=== PATIENT | female | born 1985 | race Hispanic/Latino ===

== ENCOUNTER → 2019-11-14 | Outpatient (CLI) | payer OTHER ==
[~2019-11-14] MED LIST: IOPAMIDOL 300 MG/ML 15ML VIAL IT ONE; LIDOCAINE HCL 1% LOCAL INJ 20 ML VIAL ONE; SODIUM CHLORIDE 0.9% 250ML 250 ML ONE
--- NOTE | 2019-11-14 14:44 | Diagnostic Imaging Report ---
Procedure: Right percutaneous nephrostomy catheter exchange. History: Routine maintenance. Rubber Press Tender: Jeronimo Staton M.D. Director Audience Marketing: [email or web address] Modality: Fluoroscopy. DOSE REDUCTION: The examination was performed according to departmental dose-optimization program. Fluoro time: 0.7 minutes. Radiation dose: 4.47 mGy air Kerma. Sedation: No sedation was used. Vital signs were monitored throughout the procedure by a dedicated RN under direct supervision of Dr. Staton, and remained stable. Physician intra-service sedation time was Not applicable. minutes. Anesthesia: Lidocaine local infiltration Medicines: Not applicable Contrast medium: Isovue 300, 5 cc. Estimated blood loss: < 5 cc. Technique: A discussion of the risks, benefits, and alternatives was carried out with the patient. A written informed consent was obtained. The patient expressed understanding and agreed to proceed. A universal timeout was performed prior to starting the procedure. The procedure room personnel used personal protective equipment. The operators used sterile gowns and gloves. The patient was laid prone on the procedure table. The right percutaneous nephrostomy site was prepped with chlorhexidine gluconate and draped in sterile fashion. A business intelligence manager radiograph was performed showing the catheter to be in the expected location. Contrast injection through the catheter confirmed the catheter tip location in the collecting system. After local anesthetic infiltration, the retention suture was removed. The catheter was cut and withdrawn over a wire. It was replaced with an identical catheter. The catheter position was confirmed with contrast injection. The catheter was secured to skin with nonabsorbable suture. The catheter was connected to a gravity drainage bag. An aseptic dressing was applied. The patient was transferred to the recovery area and discharged from the department in stable condition. Complications: None immediate. Findings: As above. Impression: Successful fluoroscopic guided 8.5 Congolese right nephrostomy catheter exchange as described above. Further management dictated by the clinical scenario. The nephrostomy catheter should be exchanged at the latest in three months. Thank you for the opportunity to assist in the care of your patient. Signed by: Jeronimo Staton MD on 11/14/2019 2:40 PM
== END ==
LOC: DX 11:09
PROVIDERS: ATTEND Urology
DX: N13.30 Unspecified hydronephrosis (principal)
CPT/HCPCS: 50387; 81025; C1769; J2001; J7050; Q9967

== ENCOUNTER → 2019-12-06 | Day surgery (SDC) | payer OTHER ==
[~2019-12-06] MED LIST changes: +AUGMENTIN 875-1 EACH PO; +CEFTRIAXONE SOD 1 GM/NS 50 ML 50 ML IV ONE; +DEXAMETHASONE SOD PHOS INJ 4 MG/ML VIAL ONE; +ETOMIDATE 2 MG/ML 10 ML INJ IV ONE; -IOPAMIDOL 300 MG/ML 15ML VIAL IT ONE; +IOPAMIDOL 300MG/ML 50ML INFUS..BTL IV ONE; -LIDOCAINE HCL 1% LOCAL INJ 20 ML VIAL ONE; +LIDOCAINE HCL 2% LOCAL INJ 5 ML SDV VIAL INJ ONE; +MEPERIDINE HCL INJ 25 MG/ML VIAL ONE; +ONDANSETRON HCL INJ 2MG/ML 2ML 2 MG/ML VIAL ONE; +SEVOFLURANE INHAL SOLN 250 ML PEN BTL ONE; -SODIUM CHLORIDE 0.9% 250ML 250 ML ONE
[2019-12-06 09:35] VITALS: BP 125/94
--- NOTE | 2019-12-06 13:38 | Operative Report ---
DATE OF PROCEDURE: 12/06/2019 SURGEON: Justino Blanchard MD PREOPERATIVE DIAGNOSES: 1. Right-sided nephrostomy. 2. Right hydronephrosis. 3. Microscopic hematuria. POSTOPERATIVE DIAGNOSES: 1. Right-sided nephrostomy. 2. Right hydronephrosis. 3. Ureteral stricture. 4. Microscopic hematuria. PROCEDURES: 1. Cystourethroscopy with left ureteral catheterization and left retrograde pyelogram (separate procedure for microscopic hematuria). 2. Right-sided ureteroscopy (entirely separate procedure for right ureteral stricture). 3. Supervision of fluoroscopy for both ureteroscopic and retrograde portions. 4. Interpretation of retrograde pyelography. ANESTHESIA: General. ESTIMATED BLOOD LOSS: Minimal. COMPLICATIONS: None. INDICATIONS: Ms. Joshi is a very pleasant 34-year-old female with a history of right nephrostomy placed at [facility]. She has had a history of stones and severe strictures. She and I had a long discussion about alternatives, risks, and benefits of doing nothing, an attempt to internalize stents. She voiced understanding of the options, alternatives, risks, and benefits and elected to proceed. PROCEDURE IN DETAIL: After informed consent obtained, the patient was taken to the operative suite, placed supine on the operative table, underwent general anesthesia by the Anesthesia Service, placed in dorsal lithotomy position and sterilely prepped and draped for cystoscopy. A 21-Moldovan cystoscope was inserted per urethra. Normal urethra was noted. Panendoscopy of bladder revealed no tumors, no stones. Both ureteral orifices were in normal anatomic location and position only left was seen to efflux clear urine. Bilateral retrograde pyelogram performed with a 5-Moldovan open- ended catheter. The left was normal. The right was blind-ending approximately 2 inches from the ureteral orifice. the short rigid ureteroscope was advanced to a blind-ending pouch in the distal ureter, photograph of which was taken. An inability to connect the proximal ureter the distal, we terminated the procedure, drained the bladder. The patient was awakened from anesthesia and transported to the recovery room in excellent condition. Supervision of fluoroscopy and interpretation of retrograde pyelography: I was present for the entire procedure and supervised fluoroscopy. There was no radiologist present. Attention was turned to the left and right ureters catheters. A 5-Moldovan rubber catheter retrograde pyelogram was performed on the left side revealing a delicate ureter, delicate pelvocaliceal systems on the right side a blind-ending distal ureter approximately 2 inches from the bladder. MD CLARICE Ly/MAGI /[id number] MTDD
== END | disposition home or self-care (01) ==
LOC: OR 06:30
PROVIDERS: ATTEND Urology
DX: Z93.6 Other artificial openings of urinary tract status (principal); N13.5 Crossing vessel and stricture of ureter without hydronephrosis; N13.30 Unspecified hydronephrosis; N39.0 Urinary tract infection, site not specified; R35.1 Nocturia; Z87.442 Personal history of urinary calculi; I10 Essential (primary) hypertension; E03.9 Hypothyroidism, unspecified; Z01.812 Encounter for preprocedural laboratory examination; Z11.59 Encounter for screening for other viral diseases
CPT/HCPCS: 52351; 74420; 81025; 87635; C1758; J0696; J1100; J2001; J2175; J2405; Q9967

== ENCOUNTER → 2020-02-10 | Outpatient (CLI) | payer OTHER ==
[~2020-02-10] MED LIST changes: -CEFTRIAXONE SOD 1 GM/NS 50 ML 50 ML IV ONE; -DEXAMETHASONE SOD PHOS INJ 4 MG/ML VIAL ONE; -ETOMIDATE 2 MG/ML 10 ML INJ IV ONE; +IOPAMIDOL 300MG/ML 100 ML INFUS..BTL IV ONE; -IOPAMIDOL 300MG/ML 50ML INFUS..BTL IV ONE; +LIDOCAINE HCL 1% LOCAL INJ 20 ML VIAL ONE; -LIDOCAINE HCL 2% LOCAL INJ 5 ML SDV VIAL INJ ONE; -MEPERIDINE HCL INJ 25 MG/ML VIAL ONE; -ONDANSETRON HCL INJ 2MG/ML 2ML 2 MG/ML VIAL ONE; -SEVOFLURANE INHAL SOLN 250 ML PEN BTL ONE; +SODIUM CHLORIDE 0.9% 250ML 250 ML ONE
--- NOTE | 2020-02-10 09:34 | Diagnostic Imaging Report ---
PROCEDURE: Genitourinary catheter exchange Procedural Personnel Attending physician(s): Jd Pereira MD Fellow physician(s): None Resident physician(s): None Advanced practice provider(s): None Pre-procedure diagnosis: Urinary obstruction Post-procedure diagnosis: Same Indication: Catheter malfunction (cracked at hub) Additional clinical history: None Complications: No immediate complications. IMPRESSION: Successful right PCN exchange for new 8Fr Uresil drainage catheter. Locking loop in renal pelvis. Plan: Routine exchange in 8 weeks or as needed. PROCEDURE SUMMARY - Target organ: Right [place] kidney - Antegrade nephrostogram(s) via the existing access - Nephrostomy tube exchange - Additional procedure(s): None PROCEDURE DETAILS: Pre-procedure Consent: Informed consent for the procedure including risks, benefits and alternatives was obtained and time-out was performed prior to the procedure. Preparation: The site was prepared and draped using maximal sterile barrier technique including cutaneous antisepsis. Anesthesia/sedation Level of anesthesia/sedation: No sedation Anesthesia/sedation administered by: Independent trained observer under attending supervision with continuous monitoring of the patient?s level of consciousness and physiologic status Total intra-service sedation time (minutes): NA Right genitourinary catheter exchange Local anesthesia was administered. Initial nephrostogram was performed. A wire was placed through the existing tube and it was removed. The new tube was advanced over the wire and position was confirmed with contrast injection. Pre-existing genitourinary catheter: Uresil 8Fr Genitourinary catheter(s) placed: Uresil 8Fr Findings: Catheter had retracted slightly, locking loop in a lower pole calyx. New catheter placed with locking loop in renal pelvis. External catheter securement: Non-absorbable suture Additional genitourinary system intervention Genitourinary intervention: None Location of intervention: Not applicable Device used: Not applicable Description of intervention: Not applicable Post-intervention findings: Not applicable Contrast Contrast agent: Isovue 370 Contrast volume (mL): 10cc Radiation Dose Fluoroscopy time (minutes): 0.8 Reference air kerma (mGy): 6.3 Additional Details Additional description of procedure: None Equipment details: None Specimens removed: None Estimated blood loss (mL): Less than 10 Standardized report: [id number] Attestation Signer name: Jd Pereira MD I attest that I was present for the entire procedure. I reviewed the stored images and agree with the report as written. Signed by: Jd Pereira MD on 02/10/2020 9:31 AM
== END ==
LOC: DX 07:50
PROVIDERS: ATTEND Urology
DX: N13.30 Unspecified hydronephrosis (principal)
CPT/HCPCS: J2001; J7050; Q9967; 50387